=== PATIENT | male | born 2000 | race Caucasian/White ===

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

== ENCOUNTER 2018-06-13 15:31 | Emergency (ER) | payer OTHER ==
[~2018-06-13] VITALS: Ht 175.3 cm; Wt 61.4 kg
[~2018-06-13 15:31] MED LIST changes: +TORADOL PO; +ZOFRAN4 MG/TAB PO
[2018-06-13] MEDS ORDERED: OFLOXACIN0.3 % OS (17:02)
[2018-06-13 17:12] VITALS: BP 126/78
== END 2018-06-13 17:12 | disposition home or self-care (01) ==
LOC: ED 15:31
DX: H10.9 Unspecified conjunctivitis (principal); F17.210 Nicotine dependence, cigarettes, uncomplicated; H57.12 Ocular pain, left eye

== ENCOUNTER 2018-08-06 11:23 | Emergency (ER) | payer OTHER ==
[~2018-08-06] VITALS: Ht 175.3 cm; Wt 59.1 kg
[~2018-08-06 11:23] MED LIST changes: +OFLOXACIN0.3 % OS
[2018-08-06] MEDS ORDERED: TRAMADOL HCL50 MG PO (12:11)
[2018-08-06] MEDS ORDERED: AMOXICILLIN500 MG PO (12:11)
[2018-08-06] MEDS ORDERED: MOTRIN800 MG PO (12:11)
[2018-08-06 12:52] VITALS: BP 138/89
== END 2018-08-06 12:52 | disposition home or self-care (01) ==
LOC: ED 11:23
DX: K02.9 Dental caries, unspecified (principal); K04.7 Periapical abscess without sinus; F17.210 Nicotine dependence, cigarettes, uncomplicated

== ENCOUNTER 2019-02-12 03:33 | Emergency (ER) | payer OTHER ==
[~2019-02-12] VITALS: Ht 175.3 cm; Wt 59.1 kg
[~2019-02-12 03:33] MED LIST changes: +AMOXICILLIN500 MG PO; +MOTRIN800 MG PO; +TRAMADOL HCL50 MG PO
[2019-02-12] MEDS ORDERED: MOTRIN800 MG PO (04:12)
[2019-02-12] MEDS ORDERED: AMOXICILLIN500 MG PO (04:12)
[2019-02-12 04:30] VITALS: BP 144/90
== END 2019-02-12 04:30 | disposition home or self-care (01) ==
LOC: ED 03:33
DX: K04.7 Periapical abscess without sinus (principal); F17.200 Nicotine dependence, unspecified, uncomplicated

== ENCOUNTER 2019-02-21 09:52 | Emergency (ER) | payer OTHER ==
[~2019-02-21] VITALS: Ht 175.3 cm; Wt 54.2 kg
[2019-02-21] MEDS ORDERED: CLEOCIN300 MG PO (10:43)
[2019-02-21] MEDS ORDERED: CLARITIN10 M1 PO (10:43)
[2019-02-21 10:55] VITALS: BP 131/79
== END 2019-02-21 10:55 | disposition home or self-care (01) ==
LOC: ED 09:52
DX: J02.9 Acute pharyngitis, unspecified (principal); F17.210 Nicotine dependence, cigarettes, uncomplicated

== ENCOUNTER 2019-04-04 21:12 | Emergency (ER) | payer OTHER ==
[~2019-04-04] VITALS: Ht 175.3 cm; Wt 59.0 kg
[~2019-04-04 21:12] MED LIST changes: +CLARITIN10 M1 PO; +CLEOCIN300 MG PO
[2019-04-04] MEDS ORDERED: KEFLEX500 M1 PO (23:37)
[2019-04-04 23:50] VITALS: BP 128/68
== END 2019-04-04 23:50 | disposition home or self-care (01) ==
LOC: ED 21:12
DX: S61.241A Puncture wound with foreign body of left index finger without damage to nail, initial encounter (principal); F17.210 Nicotine dependence, cigarettes, uncomplicated; W45.8XXA Other foreign body or object entering through skin, initial encounter; Y93.89 Activity, other specified; Y92.814 Boat as the place of occurrence of the external cause

== ENCOUNTER 2019-08-12 19:55 | Emergency (ER) | payer OTHER ==
[~2019-08-12 19:55] MED LIST changes: +KEFLEX500 M1 PO
[2019-08-12] MEDS ORDERED: PENICILLN VK500 MG PO (20:34)
[2019-08-12] MEDS ORDERED: TRAMADOL HYDROC50 M1 PO (20:34)
[2019-08-12 20:37] VITALS: BP 148/99
== END 2019-08-12 20:38 | disposition home or self-care (01) ==
LOC: ED 19:55
DX: K04.7 Periapical abscess without sinus (principal); K02.9 Dental caries, unspecified; M84.68XA Pathological fracture in other disease, other site, initial encounter for fracture; F17.200 Nicotine dependence, unspecified, uncomplicated

== ENCOUNTER 2019-11-02 16:33 | Emergency (ER) | payer OTHER ==
[~2019-11-02 16:33] MED LIST changes: +PENICILLN VK500 MG PO; +TRAMADOL HYDROC50 M1 PO
[2019-11-02] MEDS ORDERED: KEFLEX500 M1 PO ×2 (18:21)
[2019-11-02 18:35] VITALS: BP 129/71
== END 2019-11-02 18:35 | disposition home or self-care (01) ==
LOC: ED 16:33
DX: S91.331A Puncture wound without foreign body, right foot, initial encounter (principal); F17.210 Nicotine dependence, cigarettes, uncomplicated; W22.8XXA Striking against or struck by other objects, initial encounter; Y93.89 Activity, other specified; Y92.009 Unspecified place in unspecified non-institutional (private) residence as the place of occurrence of the external cause

== ENCOUNTER 2019-12-19 06:25 | Emergency (ER) | payer OTHER ==
[~2019-12-19] VITALS: Ht 175.3 cm; Wt 59.0 kg
[2019-12-19] MEDS ORDERED: CLINDAMYCIN300 M1 PO (07:02)
[2019-12-19] MEDS ORDERED: TORADOL PO ×2 (07:02)
[2019-12-19 07:10] VITALS: BP 118/65
== END 2019-12-19 07:22 | disposition home or self-care (01) | DRG 159 ==
LOC: ED 06:25
DX: K04.7 Periapical abscess without sinus (principal); K02.9 Dental caries, unspecified; F17.200 Nicotine dependence, unspecified, uncomplicated

== ENCOUNTER 2019-12-23 02:59 | Emergency (ER) | payer OTHER ==
[~2019-12-23] VITALS: Ht 175.3 cm; Wt 59.0 kg
[~2019-12-23 02:59] MED LIST changes: +CLINDAMYCIN300 M1 PO
[2019-12-23 03:06] VITALS: BP 169/93
[2019-12-23] MEDS ORDERED: NAPROXEN500 MG PO ×2 (03:15)
[2019-12-23] MEDS ORDERED: AMOXICILLIN500 MG PO (03:15)
== END 2019-12-23 03:32 | disposition home or self-care (01) ==
LOC: ED 02:59
DX: K04.7 Periapical abscess without sinus (principal); F17.210 Nicotine dependence, cigarettes, uncomplicated

== ENCOUNTER 2020-02-06 18:14 | Emergency (ER) | payer OTHER ==
[~2020-02-06] VITALS: Ht 175.3 cm; Wt 61.0 kg
[~2020-02-06 18:14] MED LIST changes: +NAPROXEN500 MG PO
[2020-02-06] MEDS ORDERED: KEFLEX500 M1 PO ×2 (18:50)
[2020-02-06] MEDS ORDERED: BACTROBAN TOP ×2 (18:50)
[2020-02-06 18:53] VITALS: BP 142/84
== END 2020-02-06 18:57 | disposition home or self-care (01) ==
LOC: ED 18:14
DX: L01.01 Non-bullous impetigo (principal); F17.210 Nicotine dependence, cigarettes, uncomplicated

== ENCOUNTER 2020-03-20 10:34 | Emergency (ER) | payer OTHER ==
[~2020-03-20] VITALS: Ht 175.3 cm; Wt 65.0 kg
[~2020-03-20 10:34] MED LIST changes: +BACTROBAN TOP
[2020-03-20] MEDS ORDERED: CEPHALEXIN500 M1 PO (12:28)
[2020-03-20 12:34] VITALS: BP 135/93
== END 2020-03-20 12:28 | disposition home or self-care (01) ==
LOC: ED 10:34
DX: S61.210A Laceration without foreign body of right index finger without damage to nail, initial encounter (principal); F17.200 Nicotine dependence, unspecified, uncomplicated; W23.0XXA Caught, crushed, jammed, or pinched between moving objects, initial encounter; Y92.009 Unspecified place in unspecified non-institutional (private) residence as the place of occurrence of the external cause

== ENCOUNTER 2020-08-20 00:04 | Emergency (ER) | payer OTHER ==
[~2020-08-20] VITALS: Ht 175.3 cm; Wt 61.0 kg
[~2020-08-20 00:04] MED LIST changes: +CEPHALEXIN500 M1 PO
[2020-08-20] MEDS ORDERED: ORPHENADRINE100 MG PO (02:57)
[2020-08-20] MEDS ORDERED: IBUPROFEN600 MG PO (02:57)
[2020-08-20 03:00] VITALS: BP 121/58
== END 2020-08-20 03:05 | disposition home or self-care (01) | DRG 605 ==
LOC: ED 00:04
DX: S10.93XA Contusion of unspecified part of neck, initial encounter (principal); S70.11XA Contusion of right thigh, initial encounter; F17.210 Nicotine dependence, cigarettes, uncomplicated; V47.6XXA Car passenger injured in collision with fixed or stationary object in traffic accident, initial encounter

== ENCOUNTER 2020-10-24 10:34 | Emergency (ER) | payer OTHER ==
[~2020-10-24] VITALS: Ht 175.3 cm; Wt 65.0 kg
[~2020-10-24 10:34] MED LIST changes: +ORPHENADRINE100 MG PO
[2020-10-24] MEDS ORDERED: KEFLEX500 MG PO (11:24)
[2020-10-24] MEDS ORDERED: HYDROCO/APAP1 TA9 PO ×3 (11:25→14:57)
[2020-10-24] MEDS ORDERED: CORTISPORIN OTI10 M2 AS (11:25)
[2020-10-24 11:53] VITALS: BP 148/89
[2020-10-24] MEDS ORDERED: NO HOME MEDS (11:53)
== END 2020-10-24 11:53 | disposition home or self-care (01) ==
LOC: ED 10:34
DX: K04.7 Periapical abscess without sinus (principal); K02.9 Dental caries, unspecified; S09.22XA Traumatic rupture of left ear drum, initial encounter; F17.200 Nicotine dependence, unspecified, uncomplicated; W16.42XA Fall into unspecified water causing other injury, initial encounter; Y93.11 Activity, swimming

== ENCOUNTER 2020-11-07 17:29 | Emergency (ER) | payer OTHER ==
[~2020-11-07] VITALS: Ht 175.3 cm; Wt 63.6 kg
[~2020-11-07 17:29] MED LIST changes: +CORTISPORIN OTI10 M2 AS; +HYDROCO/APAP1 TA9 PO; +NO HOME MEDS
[2020-11-07 18:54] VITALS: BP 117/61
== END 2020-11-07 18:57 | disposition home or self-care (01) ==
LOC: ED 17:29
DX: B34.9 Viral infection, unspecified (principal); F17.210 Nicotine dependence, cigarettes, uncomplicated; Z20.822 Contact with and (suspected) exposure to COVID-19

== ENCOUNTER 2021-06-15 14:28 | Emergency (ER) | payer OTHER ==
[~2021-06-15] VITALS: Ht 175.3 cm; Wt 63.7 kg
[2021-06-15] MEDS ORDERED: CLEOCIN300 MG PO (16:13)
[2021-06-15] MEDS ORDERED: ULTRAM50 MG PO (16:13)
[2021-06-15 16:34] VITALS: BP 136/89
== END 2021-06-15 16:34 | disposition home or self-care (01) ==
LOC: ED 14:28
DX: K04.7 Periapical abscess without sinus (principal); K02.9 Dental caries, unspecified; F17.210 Nicotine dependence, cigarettes, uncomplicated

== ENCOUNTER 2021-06-20 10:01 | Emergency (ER) | payer OTHER ==
[~2021-06-20] VITALS: Ht 175.3 cm; Wt 65.9 kg
[~2021-06-20 10:01] MED LIST changes: +ULTRAM50 MG PO
[2021-06-20] MEDS ORDERED: PENICILLIN V P500 MG PO (10:58)
[2021-06-20 11:22] VITALS: BP 140/83
== END 2021-06-20 11:23 | disposition home or self-care (01) ==
LOC: ED 10:01
DX: K08.89 Other specified disorders of teeth and supporting structures (principal); F17.210 Nicotine dependence, cigarettes, uncomplicated

== ENCOUNTER 2022-03-24 00:51 | Emergency (ER) | payer OTHER ==
[~2022-03-24] VITALS: Ht 175.3 cm; Wt 60.0 kg
[~2022-03-24 00:51] MED LIST changes: +PENICILLIN V P500 MG PO
== END 2022-03-24 01:15 | disposition left against medical advice (07) ==
LOC: ED 00:51
DX: S19.9XXA Unspecified injury of neck, initial encounter (principal); Y04.0XXA Assault by unarmed brawl or fight, initial encounter; Z53.29 Procedure and treatment not carried out because of patient's decision for other reasons

== ENCOUNTER 2024-07-01 15:24 | Emergency (ER) | payer BC, OTHER ==
[~2024-07-01] VITALS: Ht 175.3 cm; Wt 72.6 kg
[~2024-07-01 15:24] MED LIST changes: +OMNI-PAC300 MG PO
[2024-07-01 15:30] VITALS: BP 138/98
[2024-07-01 15:45] VITALS: BP 134/94
[2024-07-01 16:00] VITALS: BP 134/94
== END 2024-07-01 16:00 | disposition left against medical advice (07) | DRG 605 ==
LOC: ED 15:24
DX: S20.311A Abrasion of right front wall of thorax, initial encounter (principal); W20.8XXA Other cause of strike by thrown, projected or falling object, initial encounter; Z53.29 Procedure and treatment not carried out because of patient's decision for other reasons

== ENCOUNTER 2024-09-04 15:37 | Emergency (ER) | payer BC, OTHER | END 2024-09-04 16:53 | disposition home or self-care (01) | DRG 951 | LOC: ED 15:37 → LWOBS 16:37 | PROVIDERS: Family Medicine | DX: Z53.21 Procedure and treatment not carried out due to patient leaving prior to being seen by health care provider (principal) ==